=== PATIENT | female | born 1935 | race Caucasian/White ===

== ENCOUNTER 2016-04-25 18:43 | Inpatient (IN) ==
--- NOTE | 2016-04-25 19:04 | Emergency Department Note ---
Disposition Clinical Impression: HCAP (healthcare-associated pneumonia), Esotropia of left eye Leukocytosis Qualifiers: Leukocytosis type: unspecified Qualified Code(s): D72.829 - Elevated white blood cell count, unspecified Disposition: Admitted As Inpatient Condition: Fair Time of Disposition: 22:38 Neuro HPI - General Chief Complaint: ED Neuro Symptoms/Deficit Stated Complaint: Neuro Symptoms "Eyes Crossed" Time Seen by Provider: 04/25/16 18:47 Source: patient, EMS Mode of arrival: EMS Limitations: no limitations Nursing Notes Reviewed: Yes Vital Signs Reviewed: Yes - History of Present Illness HPI Narrative: Patient is a 40-year-old female with past medical history of mental retardation , 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 She presents today from a custodial due to concern for new onset left eye deviation inward , possible change in mental status. She also has a recent history of aspiration pneumonia and is currently on Levaquin. When talking to the patient , she is able to answer yes and no questions, is alert and oriented 3. Denies any chest pain, shortness of breath, cough, nausea, vomiting, abdominal pain. Patient did have a fever on presentation. Brother is present at bedside and states that she is near baseline except he agrees that the left eye deviation is new for the patient. - Related Data Home Medications: Home Medications Medication Instructions Recorded Confirmed Aspirin Enteric Coated [Aspirin EC] 81 mg PO DAILY 01/29/15 03/21/15 Divalproex (12 HR) [Depakote (12 250 mg PO TID 01/29/15 03/21/15 HR)] Donepezil [Aricept] 10 mg PO DAILY 01/29/15 03/21/15 Folic Acid 0.4 mg PO DAILY 01/29/15 03/21/15 GuaiFENesin Liq [Robitussin Liq] 10 ml PO Q4H PRN 01/29/15 03/21/15 Haloperidol [Haldol] 0.5 mg PO BID 01/29/15 03/21/15 Haloperidol [Haldol] 0.5 mg PO Q2H PRN 01/29/15 03/21/15 Hypromellose [Artificial Tears] 1 drop BOTH EYES BID 01/29/15 03/21/15 Magnesium Hydroxide [Milk of 30 ml PO DAILY PRN 01/29/15 03/21/15 Magnesia] Metoprolol XL (24 HR) Succ [Toprol 50 mg PO DAILY 01/29/15 03/21/15 Xl] Ondansetron HCl [Zofran] 4 mg PO TID PRN 01/29/15 03/21/15 Oxybutynin Chloride [Ditropan Xl] 5 mg PO DAILY 01/29/15 03/21/15 RisperiDONE [Risperdal] 0.5 mg PO QAM 01/29/15 03/21/15 RisperiDONE [Risperdal] 1 mg PO QPM 01/29/15 03/21/15 Nystatin Cream [Mycostatin Cream] 1 appl TP BID 03/21/15 03/21/15 Nystatin POWDER [Nystop] 30 gm TP BID 03/21/15 03/21/15 Previous Rx's Medication Instructions Recorded HYDROcodone/Acet 5/325 mg [Matthews 1 tab PO Q8H PRN #20 tablet 04/01/15 5-325 mg] Levofloxacin 750 MG/150 ML 750 mg IVPB DAILY 2 Days 09/22/15 [Levaquin 750mg/150 mL] Levofloxacin [Levaquin] 500 mg PO DAILY #5 tablet 09/22/15 Allergies/Adverse Reactions: Allergies Allergy/AdvReac Type Severity Reaction Status Date / Time lactose Allergy Vomiting Verified 01/29/15 15:07 peanut Allergy Abdominal Verified 01/29/15 15:07 Pain piperacillin [From Zosyn] Allergy Hives Verified 04/25/16 23:48 tazobactam [From Zosyn] Allergy Hives Verified 04/25/16 23:48 Constitutional: Reports: fever Cardiovascular: Denies: chest pain Respiratory: Denies: cough, dyspnea Gastrointestinal: Denies: abdominal pain, nausea, vomiting, diarrhea Genitourinary: Denies: urgency, dysuria Musculoskeletal: Denies: back pain Integumentary: Denies: rash Neurological: Denies: headache, weakness, numbness, paresthesias Past Medical History - Past Medical History Attestation: Yes The following information was validated with the patient. Medical history: Reports: CVA, dementia, GERD, hypertension, osteoporosis Surgical history: Reports: cholecystectomy, hysterectomy Psychiatric history: Reports: anxiety, depression DRILL RUNNER history: Reports: no DRILL RUNNER history - Social History Smoking Status: Never smoker Smokeless Tobacco Status: No Alcohol use: Reports: none Drug use: Reports: none Physical Exam - General Limitations: other (mental retardation ) General appearance: alert, in no apparent distress - Head Head exam: atraumatic, normocephalic, normal inspection - Eye Eye exam: Present: PERRL, EOMI, other (medial deviation of left eye) - ENT ENT exam: normal exam, normal oropharynx, mucous membranes moist - Neck Neck exam: Present: normal inspection, full ROM, trachea midline - Chest Chest inspection: Present: normal inspection, symmetric chest wall rise - Respiratory Respiratory exam: Present: normal lung sounds bilaterally. Absent: respiratory distress, wheezes, stridor - Cardiovascular Cardiovascular exam: Present: regular rate, normal rhythm, normal heart sounds - Abdominal Exam Abdominal exam: Present: soft, Non-Tender. Absent: tenderness, distention, guarding, rebound, rigidity - Extremities Exam Extremities exam: Present: other (Contractures of bilateral upper extremities, causing limited range of motion.). Absent: full ROM - Neurological Exam Neurological exam: Present: alert, oriented X3, other (Patient has chronic spasticity of bilateral upper extremity, bilateral lower extremities. It is unable to obtain a proper NIH score because of mental retardation and inability to perform required NIH tasks. Medial left eye deviation. ) - Psychiatric Psychiatric exam: Present: normal mood, flat affect - Skin Skin exam: Present: warm, dry, intact, normal color Course Course Narrative: Patient febrile. Otherwise, the rest of vitals were within normal limits. Patient has chronic spasticity of bilateral upper extremity, bilateral lower extremities. It is unable to obtain a proper NIH score because of mental retardation and inability to perform required NIH tasks. Medial left eye deviation. We will obtain head CT scan, basic labs, urinalysis, EKG and chest x-ray. 21:09 EKG showed no acute ST changes. Chest x-ray showed possible pneumonia. Basic labs show elevation in white blood cell count is 16.6, patient was also febrile at 100.8 on presentation. Troponin negative. Currently waiting on urinalysis. Due to leukocytosis, fever, possible pneumonia on x-ray, will draw blood cultures and then start empiric antibiotics for HCAP. Head CT negative for any acute abnormality, patient's eyes left eye medial deviation. Will likely need an MRI once admitted for further workup. 22:33 HCAP antibiotics started. FLuids started for tachycardia. Dr. Medina accepted for admission for new onset left eye deviation, HCAP. Vital Signs Temperature 0 F L 04/25/16 19:12 Pulse Rate 122 04/25/16 19:12 Respiratory Rate 18 04/25/16 19:12 Blood Pressure 122/52 04/25/16 19:12 O2 Sat by Pulse Oximetry 94 L 04/25/16 19:12 Temperature 99.8 F H 04/25/16 21:37 Pulse Rate 156 04/26/16 00:03 Respiratory Rate 30 04/26/16 00:03 Blood Pressure 132/59 04/26/16 00:03 O2 Sat by Pulse Oximetry 100 04/26/16 00:03 Oxygen Delivery Oxygen Delivery Nasal Cannula Neuro Symptoms/Deficit - MDM Narrative Medical decision making narrative: Patient febrile. Otherwise, the rest of vitals were within normal limits. Patient has chronic spasticity of bilateral upper extremity, bilateral lower extremities. It is unable to obtain a proper NIH score because of mental retardation and inability to perform required NIH tasks. Medial left eye deviation. We will obtain head CT scan, basic labs, urinalysis, EKG and chest x-ray. 21:09 EKG showed no acute ST changes. Chest x-ray showed possible pneumonia. Basic labs show elevation in white blood cell count is 16.6, patient was also febrile at 100.8 on presentation. Troponin negative. Currently waiting on urinalysis. Due to leukocytosis, fever, possible pneumonia on x-ray, will draw blood cultures and then start empiric antibiotics for HCAP. Head CT negative for any acute abnormality, patient's eyes left eye medial deviation. Will likely need an MRI once admitted for further workup. 22:33 HCAP antibiotics started. FLuids started for tachycardia. Dr. Medina accepted for admission for new onset left eye deviation, HCAP. - Medical Records Medical records reviewed: Yes I reviewed the patient's medical records. - Lab Data Lab results reviewed: Yes I reviewed the patient's lab results. Result diagrams: 04/25/16 20:16 04/25/16 20:16 Lab Results 04/25/16 04/25/16 04/25/16 Range/Units 19:58 20:16 20:16 WBC 16.6 H (4.3-11.1) K/mcL RBC 3.81 L (3.82-4.97) M/mcL Hgb 9.4 L (11.5-15.4) g/dL Hct 31.3 L (35.3-44.9) % MCV 82.2 L (83.0-100.0) fL MCH 24.7 L (28.0-33.3) pg MCHC 30.0 L (31.6-35.5) g/dL RDW 15.7 H (11.5-14.5) % Plt Count 442 H (140-400) K/mcL MPV 9.4 (9.4-12.4) fL Immature Gran % 0.5 (0-4) % Seg Neutrophils % 77.7 % Lymphocytes % 13.5 % Monocytes % 7.1 % Eosinophils % 0.9 % Basophils % 0.3 % Neutrophils # 12.9 H (1.6-8.9) K/mcL Lymphocytes # 2.2 (0.6-4.6) K/mcL Monocytes # 1.2 (0.0-1.3) K/mcL Eosinophils # 0.2 (0.0-0.6) K/mcL Basophils # 0.1 (0.0-0.2) K/mcL PT 15.0 H (9.4-12.1) Seconds INR 1.4 APTT 32.2 (26.0-36.0) Seconds Sodium (136-145) mEq/L Potassium (3.5-4.5) mEq/L Chloride (98-109) mEq/L Carbon Dioxide (19-29) mEq/L BUN (7-20) mg/dL Creatinine (0.57-1.11) mg/dL Est GFR ( Amer) (> 60) Est GFR (Non-Af Amer) (> 60) BUN/Creatinine Ratio (6-26) Glucose (70-99) mg/dL POC Glucose 88 (58-89) Calculated Osmolality (280-300) Lactic Acid (0.5-2.2) mmol/L Calcium (8.6-10.8) mg/dL Magnesium (1.6-2.6) mg/dL Troponin I (0-0.03) ng/mL Urine Color (Yellow) Urine Clarity (Clear) Urine pH (5.0-8.0) pH Units Ur Specific [place] (1.010-1.025) Urine Protein (Neg-Trace) mg/dL Urine Glucose (UA) (Normal) mg/dL Urine Ketones (Negative) mg/dL Urine Blood (Negative) Urine Nitrite (Negative) Urine Bilirubin (Negative) Urine Urobilinogen (Normal) mg/dL Ur Leukocyte Esterase (Negative) Urine Microscopic RBC (0-3) per hpf Urine Microscopic WBC (0-3) per hpf Ur Squamous Epith Cells (None-Few) per lpf Urine Bacteria (None-Few) per hpf Hyaline Casts (None-Few) per lpf Ur Culture Indicated? (NO) 04/25/16 04/25/16 04/25/16 Range/Units 20:16 20:16 20:16 WBC (4.3-11.1) K/mcL RBC (3.82-4.97) M/mcL Hgb (11.5-15.4) g/dL Hct (35.3-44.9) % MCV (83.0-100.0) fL MCH (28.0-33.3) pg MCHC (31.6-35.5) g/dL RDW (11.5-14.5) % Plt Count (140-400) K/mcL MPV (9.4-12.4) fL Immature Gran % (0-4) % Seg Neutrophils % % Lymphocytes % % Monocytes % % Eosinophils % % Basophils % % Neutrophils # (1.6-8.9) K/mcL Lymphocytes # (0.6-4.6) K/mcL Monocytes # (0.0-1.3) K/mcL Eosinophils # (0.0-0.6) K/mcL Basophils # (0.0-0.2) K/mcL PT (9.4-12.1) Seconds INR APTT (26.0-36.0) Seconds Sodium 139 (136-145) mEq/L Potassium 4.1 (3.5-4.5) mEq/L Chloride 102 (98-109) mEq/L Carbon Dioxide 28 (19-29) mEq/L BUN 32 H (7-20) mg/dL Creatinine 0.58 (0.57-1.11) mg/dL Est GFR ( Amer) > 60 (> 60) Est GFR (Non-Af Amer) > 60 (> 60) BUN/Creatinine Ratio 55 H (6-26) Glucose 88 (70-99) mg/dL POC Glucose (58-89) Calculated Osmolality 294 (280-300) Lactic Acid (0.5-2.2) mmol/L Calcium 8.4 L (8.6-10.8) mg/dL Magnesium 1.5 L (1.6-2.6) mg/dL Troponin I 0.02 (0-0.03) ng/mL Urine Color (Yellow) Urine Clarity (Clear) Urine pH (5.0-8.0) pH Units Ur Specific [place] (1.010-1.025) Urine Protein (Neg-Trace) mg/dL Urine Glucose (UA) (Normal) mg/dL Urine Ketones (Negative) mg/dL Urine Blood (Negative) Urine Nitrite (Negative) Urine Bilirubin (Negative) Urine Urobilinogen (Normal) mg/dL Ur Leukocyte Esterase (Negative) Urine Microscopic RBC (0-3) per hpf Urine Microscopic WBC (0-3) per hpf Ur Squamous Epith Cells (None-Few) per lpf Urine Bacteria (None-Few) per hpf Hyaline Casts (None-Few) per lpf Ur Culture Indicated? (NO) 04/25/16 04/25/16 Range/Units 20:57 22:29 WBC (4.3-11.1) K/mcL RBC (3.82-4.97) M/mcL Hgb (11.5-15.4) g/dL Hct (35.3-44.9) % MCV (83.0-100.0) fL MCH (28.0-33.3) pg MCHC (31.6-35.5) g/dL RDW (11.5-14.5) % Plt Count (140-400) K/mcL MPV (9.4-12.4) fL Immature Gran % (0-4) % Seg Neutrophils % % Lymphocytes % % Monocytes % % Eosinophils % % Basophils % % Neutrophils # (1.6-8.9) K/mcL Lymphocytes # (0.6-4.6) K/mcL Monocytes # (0.0-1.3) K/mcL Eosinophils # (0.0-0.6) K/mcL Basophils # (0.0-0.2) K/mcL PT (9.4-12.1) Seconds INR APTT (26.0-36.0) Seconds Sodium (136-145) mEq/L Potassium (3.5-4.5) mEq/L Chloride (98-109) mEq/L Carbon Dioxide (19-29) mEq/L BUN (7-20) mg/dL Creatinine (0.57-1.11) mg/dL Est GFR ( Amer) (> 60) Est GFR (Non-Af Amer) (> 60) BUN/Creatinine Ratio (6-26) Glucose (70-99) mg/dL POC Glucose (58-89) Calculated Osmolality (280-300) Lactic Acid 0.8 (0.5-2.2) mmol/L Calcium (8.6-10.8) mg/dL Magnesium (1.6-2.6) mg/dL Troponin I (0-0.03) ng/mL Urine Color Yellow (Yellow) Urine Clarity Cloudy A (Clear) Urine pH 7.5 (5.0-8.0) pH Units Ur Specific [place] 1.020 (1.010-1.025) Urine Protein Negative (Neg-Trace) mg/dL Urine Glucose (UA) Normal (Normal) mg/dL Urine Ketones Negative (Negative) mg/dL Urine Blood Negative (Negative) Urine Nitrite Negative (Negative) Urine Bilirubin Negative (Negative) Urine Urobilinogen Normal (Normal) mg/dL Ur Leukocyte Esterase Small H (Negative) Urine Microscopic RBC 30-50 H (0-3) per hpf Urine Microscopic WBC 15-30 H (0-3) per hpf Ur Squamous Epith Cells Moderate H (None-Few) per lpf Urine Bacteria Many H (None-Few) per hpf Hyaline Casts None Seen (None-Few) per lpf Ur Culture Indicated? YES A (NO) - Radiology Data Radiology results reviewed: Yes I reviewed the patient's radiology results. Chest X-Ray 04/25/16 19:00 IMPRESSION: 1. Right perihilar airspace opacity and prominence of the right hilum, potentially pneumonia or asymmetric edema. 2. Questionable bilateral suprahilar opacities, potentially edema or artifact related to positioning. 3. Pulmonary vascular congestion. D/ / Steven Arauz MD / Steven Arauz MD Interpreting Provider: Steven Arauz MD Head CT 04/25/16 19:00 IMPRESSION: Evaluation markedly limited by motion artifact. No gross abnormality. Stable diffuse ventriculomegaly and white matter changes. D/ / 04/25/2016 20:00:23 Terry Godfrey MD / nathalia Interpreting Provider: Terry Godfrey MD - EKG Data EKG attestation: Yes I reviewed and interpreted this EKG. EKG results narrative: 04/25/2016 18:44. Sinus tachycardia. Rate 107. LA interval 140. QTC 387. No acute ST elevation or depression. Normal axis. S.B.A.R. - S.B.A.R. Situation: Demographics, MOA Background: Presenting Complaint, Relevant PMH, Meds, & Allergies Assessment: Vital Signs, Course and respsone to treatment, Exam Concerns, Patient/Family Expectation, Pertinant Lab Results, Outstanding Labs Recommendation: Barrier(s) to disposition, Recommendation based on pending studies, treatments, or consults S.B.A.R. Repor Time: 22:38 Attestation Statement - Attestation Attestation: For this encounter, I have reviewed the resident, [employer], or PA documentation, treatment plan, and medical decision making; and I have had face to face time with this patient. History source: Patient is unable to provide information for this note. Info was gathered from the patient, hospital staff, the patient's chart. History limitations: Patient condition Medications: As per nurses note 80-year-old female brought in for neurologic deficit as well as fever. Patient has MRDD and is unable to provide history regarding her symptoms. Nursing staff noted the patient had a medial deviated gaze of the left eye which is new today compared to previous. Patient is unable to perform a neurologic exam due to her baseline mental condition. Brother states the patient is at her baseline with motor activity and cognitive ability. Patient had a fever of 100.8 on evaluation in custodial. Chest x-ray shows a possible infiltrate and patient will be treated as HCAP. CT of the head was negative for acute intracranial hemorrhage or large mass. Patient is not a TPA candidate due to the unknown time of onset and her baseline mental status. Patient will be admitted to the hospital for further evaluation of sepsis versus possible CVA.
[2016-04-25 20:23] LABS: Basophils # 0.1 K/mcL (0.0-0.2); Basophils % 0.3 %; Eosinophils # 0.2 K/mcL (0.0-0.6); Eosinophils % 0.9 %; Hematocrit 31.3 % (35.3-44.9); Hemoglobin 9.4 g/dL (11.5-15.4); Immature Granulocytes % 0.5 % (0-4); Lymphocytes # 2.2 K/mcL (0.6-4.6); Lymphocytes % 13.5 %; Mean Corpuscular Hemoglobin 24.7 pg (28.0-33.3); Mean Corpuscular Volume 82.2 fL (83.0-100.0); Mean Platelet Volume 9.4 fL (9.4-12.4); Monocytes # 1.2 K/mcL (0.0-1.3); Monocytes % 7.1 %; Neutrophils # 12.9 K/mcL (1.6-8.9); Platelet Count 442 K/mcL (140-400); Red Blood Count 3.81 M/mcL (3.82-4.97); Red Cell Distribution Width 15.7 % (11.5-14.5); Segmented Neutrophils % 77.7 %
[2016-04-25 20:30] LABS: INR 1.4
[2016-04-25 20:33] LABS: Activated Partial Thrombo Time 32.2 Seconds (26.0-36.0)
[2016-04-25 20:35] LABS: BUN/Creatinine Ratio 55 (6-26); Blood Urea Nitrogen 32 mg/dL (7-20); Calcium 8.4 mg/dL (8.6-10.8); Carbon Dioxide 28 mEq/L (19-29); Chloride 102 mEq/L (98-109); Glucose 88 mg/dL (70-99); Osmolality,Calculated 294 (280-300); Potassium 4.1 mEq/L (3.5-4.5); Sodium 139 mEq/L (136-145); eGFR For African Americans > 60 (> 60); eGFR For Non-African Americans > 60 (> 60)
[2016-04-25 21:11] LABS: Bilirubin,Urine Negative (Negative); Blood,Urine Negative (Negative); Clarity,Urine Cloudy (Clear); Color,Urine Yellow (Yellow); Glucose,Urine (UA) Normal (Normal); Ketones,Urine Negative (Negative); Leukocyte Esterase,Urine Small (Negative); Nitrite,Urine Negative (Negative); PH,Urine 7.5 pH Units (5.0-8.0); Protein,Urine Negative (Neg-Trace); Urobilinogen,Urine Normal (Normal)
[2016-04-25 21:12] LABS: Bacteria,Urine Many per hpf (None-Few); Hyaline Casts,Urine None Seen per lpf (None-Few); RBC,Urine 30-50 per hpf (0-3); Squamous Epithelial Cell,Urine Moderate per lpf (None-Few); WBC,Urine 15-30 per hpf (0-3)
[2016-04-25] MEDS ORDERED: 0.9 % Sodium Chloride 1,000 ML IVC ONE (21:57)
[2016-04-25] MEDS ORDERED: Piperacillin/Tazobactam 3.375 GM in D5% in Water (Mini-Bag+) 100 ML IVPB ONE (22:27)
[2016-04-25] MEDS ORDERED: Vancomycin 2,000 MG in D5% in Water 250 ML IVPB ONE (22:27)
[2016-04-25] MEDS ORDERED: Levofloxacin 750 MG/150 ML 750 MG/150 ML BAG IVPB ONE (22:27)
[2016-04-25] MEDS ORDERED: methylPREDNISolone 125 MG/2 ML VIAL ONE (23:31)
[2016-04-25] MEDS ORDERED: *HR* EPINEPHrine 1 MG/ML AMPUL ONE (23:33)
[2016-04-25] MEDS ORDERED: methylPREDNISolone 125 MG/2 ML VIAL IVP ONE (23:35)
[2016-04-25] MEDS ORDERED: *HR* EPINEPHrine 0.3 MG/0.3 ML (PEN) SQ ONE (23:38)
[2016-04-25] MEDS: 0.9 % Sodium Chloride 1,000 ML IVC SCH (23:45)
--- NOTE | 2016-04-25 23:46 | Emergency Department Note ---
Disposition Clinical Impression: HCAP (healthcare-associated pneumonia), Esotropia of left eye, Leukocytosis Disposition: Admitted As Inpatient Condition: Fair Allergic Reaction HPI - General Chief complaint: ED Neuro Symptoms/Deficit Stated complaint: Neuro Symptoms "Eyes Crossed" Time Seen by Provider: 04/25/16 18:47 Source: patient, EMS Mode of arrival: EMS Limitations: other (mental retardation ) - Related Data Home Medications Medication Instructions Recorded Confirmed Divalproex (12 HR) [Depakote (12 250 mg GTUBE TID 01/29/15 04/26/16 HR)] Donepezil [Aricept] 10 mg GTUBE DAILY 01/29/15 04/26/16 Folic Acid 0.4 mg GTUBE DAILY 01/29/15 04/26/16 GuaiFENesin Liq [Robitussin Liq] 10 ml GTUBE Q4H PRN 01/29/15 04/26/16 Hypromellose [Artificial Tears] 1 drop BOTH EYES BID 01/29/15 04/26/16 Magnesium Hydroxide [Milk of 30 ml GTUBE DAILY PRN 01/29/15 04/26/16 Magnesia] Acetaminophen [Tylenol] 650 mg GTUBE Q4H PRN 04/26/16 04/26/16 Aspirin 81 mg GTUBE DAILY 04/26/16 04/26/16 Furosemide [Lasix] 20 mg GTUBE DAILY 04/26/16 04/26/16 HYDROcodone/Acet 5/325 mg [[place] 1 tab GTUBE Q8H PRN 04/26/16 04/26/16 5-325 mg] Ipratropium/Albuterol Neb [Duoneb] 3 ml IH Q6HR PRN 04/26/16 04/26/16 LORazepam [Ativan] 0.5 mg GTUBE BID PRN 04/26/16 04/26/16 Levofloxacin [Levaquin] 500 mg PO DAILY 04/26/16 Metoprolol [Lopressor] 50 mg GTUBE BID 04/26/16 04/26/16 Fredrick/Poly/Celeste OINT [Triple 1 appl TP AD 04/26/16 04/26/16 Antibiotic Ointment] Omeprazole [PriLOSEC] 40 mg GTUBE DAILY 04/26/16 04/26/16 Ondansetron Oral Soln [Zofran Oral 4 mg GTUBE TID 04/26/16 04/26/16 Soln] Oxybutynin Chloride 5 mg GTUBE DAILY 04/26/16 04/26/16 Promethazine [Phenergan] 25 mg IM Q6H PRN 04/26/16 04/26/16 RisperiDONE [Risperdal] 0.5 mg GTUBE QAM 04/26/16 04/26/16 RisperiDONE [Risperdal] 1 mg GTUBE QPM 04/26/16 04/26/16 Allergies Allergy/AdvReac Type Severity Reaction Status Date / Time lactose Allergy Vomiting Verified 01/29/15 15:07 peanut Allergy Abdominal Verified 01/29/15 15:07 Pain piperacillin [From Zosyn] Allergy Anaphylaxis Verified 04/26/16 08:01 tazobactam [From Zosyn] Allergy Anaphylaxis Verified 04/26/16 08:01 Constitutional: Reports: fever Cardiovascular: Denies: chest pain Respiratory: Denies: cough, dyspnea Gastrointestinal: Denies: abdominal pain, nausea, vomiting, diarrhea Genitourinary: Denies: urgency, dysuria Musculoskeletal: Denies: back pain Integumentary: Denies: rash Neurological: Denies: headache, weakness, numbness, paresthesias Past Medical History - Past Medical History Medical history: Reports: CVA, dementia, GERD, hypertension, osteoporosis Surgical history: Reports: cholecystectomy, hysterectomy Psychiatric history: Reports: anxiety, depression [employer] history: Reports: no [employer] history - Social History Smoking Status: Never smoker Smokeless Tobacco Status: No Alcohol use: Reports: none Drug use: Reports: none Physical Exam - General Limitations: other (mental retardation ) General appearance: alert, in no apparent distress Course Vital Signs Temperature 0 F L 04/25/16 19:12 Pulse Rate 122 04/25/16 19:12 Respiratory Rate 18 04/25/16 19:12 Blood Pressure 122/52 04/25/16 19:12 O2 Sat by Pulse Oximetry 94 L 04/25/16 19:12 Temperature 98.0 F 04/27/16 18:37 Pulse Rate 85 04/27/16 18:37 Respiratory Rate 16 04/27/16 18:37 Blood Pressure 138/69 04/27/16 18:37 O2 Sat by Pulse Oximetry 96 04/27/16 18:37 Oxygen Delivery Oxygen Delivery Non Rebreather Mask Allergic Reaction - MDM Narrative Medical decision making narrative: Requested to evaluate the patient by nursing reported she was having an allergic reaction. Patient had just completed her dose of Zosyn. Upon presentation the patient has whole body urticaria. Her blood pressure is stable and she is satting well in the high 90s. Heart rate is in the 130s but reported that this is where she has been for most of her visit. She has no oropharyngeal edema. She has diminished breath sounds bilaterally but no wheezing or stridor. Patient does report that she feels like she had an upset stomach. Given this the patient received Benadryl, Solu-Medrol and epinephrine subcutaneous. We will continue to monitor closely given her anaphylactic reaction. - Lab Data Result diagrams: 04/27/16 05:22 04/27/16 05:22 Lab Results 04/25/16 04/25/16 04/25/16 Range/Units 19:58 20:16 20:16 WBC 16.6 H (4.3-11.1) K/mcL RBC 3.81 L (3.82-4.97) M/mcL Hgb 9.4 L (11.5-15.4) g/dL Hct 31.3 L (35.3-44.9) % MCV 82.2 L (83.0-100.0) fL MCH 24.7 L (28.0-33.3) pg MCHC 30.0 L (31.6-35.5) g/dL RDW 15.7 H (11.5-14.5) % Plt Count 442 H (140-400) K/mcL MPV 9.4 (9.4-12.4) fL Immature Gran % 0.5 (0-4) % Seg Neutrophils % 77.7 % Lymphocytes % 13.5 % Monocytes % 7.1 % Eosinophils % 0.9 % Basophils % 0.3 % Neutrophils # 12.9 H (1.6-8.9) K/mcL Lymphocytes # 2.2 (0.6-4.6) K/mcL Monocytes # 1.2 (0.0-1.3) K/mcL Eosinophils # 0.2 (0.0-0.6) K/mcL Basophils # 0.1 (0.0-0.2) K/mcL PT 15.0 H (9.4-12.1) Seconds INR 1.4 APTT 32.2 (26.0-36.0) Seconds Sodium (136-145) mEq/L Potassium (3.5-4.5) mEq/L Chloride (98-109) mEq/L Carbon Dioxide (19-29) mEq/L BUN (7-20) mg/dL Creatinine (0.57-1.11) mg/dL Est GFR ( Amer) (> 60) Est GFR (Non-Af Amer) (> 60) BUN/Creatinine Ratio (6-26) Glucose (70-99) mg/dL POC Glucose 88 (58-89) Calculated Osmolality (280-300) Lactic Acid (0.5-2.2) mmol/L Calcium (8.6-10.8) mg/dL Magnesium (1.6-2.6) mg/dL Troponin I (0-0.03) ng/mL Urine Color (Yellow) Urine Clarity (Clear) Urine pH (5.0-8.0) pH Units Ur Specific [place] (1.010-1.025) Urine Protein (Neg-Trace) mg/dL Urine Glucose (UA) (Normal) mg/dL Urine Ketones (Negative) mg/dL Urine Blood (Negative) Urine Nitrite (Negative) Urine Bilirubin (Negative) Urine Urobilinogen (Normal) mg/dL Ur Leukocyte Esterase (Negative) Urine Microscopic RBC (0-3) per hpf Urine Microscopic WBC (0-3) per hpf Ur Squamous Epith Cells (None-Few) per lpf Urine Bacteria (None-Few) per hpf Hyaline Casts (None-Few) per lpf Ur Culture Indicated? (NO) 04/25/16 04/25/16 04/25/16 Range/Units 20:16 20:16 20:16 WBC (4.3-11.1) K/mcL RBC (3.82-4.97) M/mcL Hgb (11.5-15.4) g/dL Hct (35.3-44.9) % MCV (83.0-100.0) fL MCH (28.0-33.3) pg MCHC (31.6-35.5) g/dL RDW (11.5-14.5) % Plt Count (140-400) K/mcL MPV (9.4-12.4) fL Immature Gran % (0-4) % Seg Neutrophils % % Lymphocytes % % Monocytes % % Eosinophils % % Basophils % % Neutrophils # (1.6-8.9) K/mcL Lymphocytes # (0.6-4.6) K/mcL Monocytes # (0.0-1.3) K/mcL Eosinophils # (0.0-0.6) K/mcL Basophils # (0.0-0.2) K/mcL PT (9.4-12.1) Seconds INR APTT (26.0-36.0) Seconds Sodium 139 (136-145) mEq/L Potassium 4.1 (3.5-4.5) mEq/L Chloride 102 (98-109) mEq/L Carbon Dioxide 28 (19-29) mEq/L BUN 32 H (7-20) mg/dL Creatinine 0.58 (0.57-1.11) mg/dL Est GFR ( Amer) > 60 (> 60) Est GFR (Non-Af Amer) > 60 (> 60) BUN/Creatinine Ratio 55 H (6-26) Glucose 88 (70-99) mg/dL POC Glucose (58-89) Calculated Osmolality 294 (280-300) Lactic Acid (0.5-2.2) mmol/L Calcium 8.4 L (8.6-10.8) mg/dL Magnesium 1.5 L (1.6-2.6) mg/dL Troponin I 0.02 (0-0.03) ng/mL Urine Color (Yellow) Urine Clarity (Clear) Urine pH (5.0-8.0) pH Units Ur Specific [place] (1.010-1.025) Urine Protein (Neg-Trace) mg/dL Urine Glucose (UA) (Normal) mg/dL Urine Ketones (Negative) mg/dL Urine Blood (Negative) Urine Nitrite (Negative) Urine Bilirubin (Negative) Urine Urobilinogen (Normal) mg/dL Ur Leukocyte Esterase (Negative) Urine Microscopic RBC (0-3) per hpf Urine Microscopic WBC (0-3) per hpf Ur Squamous Epith Cells (None-Few) per lpf Urine Bacteria (None-Few) per hpf Hyaline Casts (None-Few) per lpf Ur Culture Indicated? (NO) 04/25/16 04/25/16 04/26/16 Range/Units 20:57 22:29 00:45 WBC (4.3-11.1) K/mcL RBC (3.82-4.97) M/mcL Hgb (11.5-15.4) g/dL Hct (35.3-44.9) % MCV (83.0-100.0) fL MCH (28.0-33.3) pg MCHC (31.6-35.5) g/dL RDW (11.5-14.5) % Plt Count (140-400) K/mcL MPV (9.4-12.4) fL Immature Gran % (0-4) % Seg Neutrophils % % Lymphocytes % % Monocytes % % Eosinophils % % Basophils % % Neutrophils # (1.6-8.9) K/mcL Lymphocytes # (0.6-4.6) K/mcL Monocytes # (0.0-1.3) K/mcL Eosinophils # (0.0-0.6) K/mcL Basophils # (0.0-0.2) K/mcL PT (9.4-12.1) Seconds INR APTT (26.0-36.0) Seconds Sodium (136-145) mEq/L Potassium (3.5-4.5) mEq/L Chloride (98-109) mEq/L Carbon Dioxide (19-29) mEq/L BUN (7-20) mg/dL Creatinine (0.57-1.11) mg/dL Est GFR ( Amer) (> 60) Est GFR (Non-Af Amer) (> 60) BUN/Creatinine Ratio (6-26) Glucose (70-99) mg/dL POC Glucose (58-89) Calculated Osmolality (280-300) Lactic Acid 0.8 2.0 (0.5-2.2) mmol/L Calcium (8.6-10.8) mg/dL Magnesium (1.6-2.6) mg/dL Troponin I (0-0.03) ng/mL Urine Color Yellow (Yellow) Urine Clarity Cloudy A (Clear) Urine pH 7.5 (5.0-8.0) pH Units Ur Specific [place] 1.020 (1.010-1.025) Urine Protein Negative (Neg-Trace) mg/dL Urine Glucose (UA) Normal (Normal) mg/dL Urine Ketones Negative (Negative) mg/dL Urine Blood Negative (Negative) Urine Nitrite Negative (Negative) Urine Bilirubin Negative (Negative) Urine Urobilinogen Normal (Normal) mg/dL Ur Leukocyte Esterase Small H (Negative) Urine Microscopic RBC 30-50 H (0-3) per hpf Urine Microscopic WBC 15-30 H (0-3) per hpf Ur Squamous Epith Cells Moderate H (None-Few) per lpf Urine Bacteria Many H (None-Few) per hpf Hyaline Casts None Seen (None-Few) per lpf Ur Culture Indicated? YES A (NO) 04/26/16 Range/Units 01:56 WBC (4.3-11.1) K/mcL RBC (3.82-4.97) M/mcL Hgb (11.5-15.4) g/dL Hct (35.3-44.9) % MCV (83.0-100.0) fL MCH (28.0-33.3) pg MCHC (31.6-35.5) g/dL RDW (11.5-14.5) % Plt Count (140-400) K/mcL MPV (9.4-12.4) fL Immature Gran % (0-4) % Seg Neutrophils % % Lymphocytes % % Monocytes % % Eosinophils % % Basophils % % Neutrophils # (1.6-8.9) K/mcL Lymphocytes # (0.6-4.6) K/mcL Monocytes # (0.0-1.3) K/mcL Eosinophils # (0.0-0.6) K/mcL Basophils # (0.0-0.2) K/mcL PT (9.4-12.1) Seconds INR APTT (26.0-36.0) Seconds Sodium (136-145) mEq/L Potassium (3.5-4.5) mEq/L Chloride (98-109) mEq/L Carbon Dioxide (19-29) mEq/L BUN (7-20) mg/dL Creatinine (0.57-1.11) mg/dL Est GFR ( Amer) (> 60) Est GFR (Non-Af Amer) (> 60) BUN/Creatinine Ratio (6-26) Glucose (70-99) mg/dL POC Glucose 169 H (58-89) Calculated Osmolality (280-300) Lactic Acid (0.5-2.2) mmol/L Calcium (8.6-10.8) mg/dL Magnesium (1.6-2.6) mg/dL Troponin I (0-0.03) ng/mL Urine Color (Yellow) Urine Clarity (Clear) Urine pH (5.0-8.0) pH Units Ur Specific [place] (1.010-1.025) Urine Protein (Neg-Trace) mg/dL Urine Glucose (UA) (Normal) mg/dL Urine Ketones (Negative) mg/dL Urine Blood (Negative) Urine Nitrite (Negative) Urine Bilirubin (Negative) Urine Urobilinogen (Normal) mg/dL Ur Leukocyte Esterase (Negative) Urine Microscopic RBC (0-3) per hpf Urine Microscopic WBC (0-3) per hpf Ur Squamous Epith Cells (None-Few) per lpf Urine Bacteria (None-Few) per hpf Hyaline Casts (None-Few) per lpf Ur Culture Indicated? (NO) Attestation Statement - Attestation Attestation: I, Ben Wiley MD, personally performed a history and physical exam of the patient and discussed their management with the resident. I reviewed the resident's note and agree with the documented findings, medical decision making , and plan of care. This patient was signed out at shift change from Dr. Greenberg. Patient has been accepted for admission and awaiting bed placement. Patient received IV Zosyn and developed an anaphylactic reaction here in the emergency department. Patient with diffuse hives and shortness of breath. She was treated with IV Benadryl and Solu-Medrol. She also received epinephrine 1:1000, 0.3 mL subcutaneous. She did have improvement in her symptoms with this treatment and will be transferred to the floor after some further observation here in the emergency department.
--- NOTE | 2016-04-26 00:24 | Internal Med History&Physical ---
<Che Galan - Last Filed: 04/26/16 01:51> Date of Encounter: 04/25/16 Time of Encounter: 00:22 Assessment and Plan (1) Anaphylactic reaction Current visit: Yes Status: Acute In ER pt during administration of Zosyn for HCAP pt developed facial and neck edema, abdominal and extremities x4 hives given epinephrine, IV steriods, pepcid and Benadryl will place in ICU for next couple hours for close monitoring continue steroids, benadryl, pepcid (2) HCAP (healthcare-associated pneumonia) Current visit: Yes Status: Acute lives in ECF, recently had an aspiration pneumonia CXR with hilar opacity, WBC 16.6 treat with levaquin monotherapy sputum ctx supportive care (3) Leukocytosis Current visit: Yes Status: Acute WBC 16.6 started on levaquin for suspected pneumonia Qualifiers: Leukocytosis type: unspecified Qualified Code(s): D72.829 - Elevated white blood cell count, unspecified (4) Sepsis Current visit: No Status: Acute leukocytosis, RR>22, tachycardic suspected pneumonia vs UTI started on levaquin Qualifiers: Sepsis type: sepsis due to unspecified organism Qualified Code(s): A41.9 - Sepsis, unspecified organism (5) Esotropia of left eye Current visit: Yes Status: Acute unclear etiology, has improved CT scan with diffuse ventriculomegaly and white matter changes no acute changes appreciated may need MRI for further imaging if remains unresolved (6) Dementia Current visit: No Status: Acute Qualifiers: Dementia type: Alzheimer's disease Alzheimer's disease onset: unspecified onset (7) Debility Current visit: No Status: Acute (8) DVT prophylaxis Current visit: No Status: Acute SCDs SQ heparin (9) Hypomagnesemia Current visit: Yes Status: Acute Mg 1.5 will replace (10) Dehydration Current visit: Yes Status: Acute IVF supportive care Internal Medicine - H&P: HPI Chief complaint: new onset L eye deviation Admitted From: Emergency Dept Plans for Post Hospital Care: Transfer Shelter Facility History of present illness: Ms. Moreland is a 80 year old female with new onset L eye deviation. PMHx of MRDD , spastic paralysis, dementia, CVA, HTN, shizophrenia, anxiety/depression who was currently receiving abx treatment with levaquin for a current pneumonia infection. [facility] sent pt to ER for change in baseline mental status, and left eye medial deviation. Pt is poor historian, but is able to answer most yes/no questions. Pt states that she did feel more confused earlier today, but is unable to remember when or how long this lasted for. Brother at bed side earlier, states that she is back to her baseline mentation, but eye deviation is knew today. pt states she did have some nausea earlier today. Pt denies recent fall/trauma, denies headache, change in vision, CP, SOB, vomiting. Past Med Surg Social Fam HX - Past Medical History Medical history: CHF, CVA, dementia, GERD, hypertension, osteoporosis Psychiatric history: anxiety, depression, schizophrenia - Past Surgical History Surgical History: carotid endarterectomy, cholecystectomy, hysterectomy - Social History Smoking Status: Never smoker Smokeless Tobacco Status: No Alcohol use: none Drug use: none Internal Medicine - H&P: Meds Aspirin Enteric Coated [Aspirin EC] 81 mg PO DAILY 01/29/15 [History] Divalproex (12 HR) [Depakote (12 HR)] 250 mg PO TID 01/29/15 [History] Donepezil [Aricept] 10 mg PO DAILY 01/29/15 [History] Folic Acid 0.4 mg PO DAILY 01/29/15 [History] GuaiFENesin Liq [Robitussin Liq] 10 ml PO Q4H PRN 01/29/15 [History] Haloperidol [Haldol] 0.5 mg PO BID 01/29/15 [History] Haloperidol [Haldol] 0.5 mg PO Q2H PRN 01/29/15 [History] Hypromellose [Artificial Tears] 1 drop BOTH EYES BID 01/29/15 [History] Magnesium Hydroxide [Milk of Magnesia] 30 ml PO DAILY PRN 01/29/15 [History] Metoprolol XL (24 HR) Succ [Toprol Xl] 50 mg PO DAILY 01/29/15 [History] Ondansetron HCl [Zofran] 4 mg PO TID PRN 01/29/15 [History] Oxybutynin Chloride [Ditropan Xl] 5 mg PO DAILY 01/29/15 [History] RisperiDONE [Risperdal] 0.5 mg PO QAM 01/29/15 [History] RisperiDONE [Risperdal] 1 mg PO QPM 01/29/15 [History] Nystatin Cream [Mycostatin Cream] 1 appl TP BID 03/21/15 [History] Nystatin POWDER [Nystop] 30 gm TP BID 03/21/15 [History] HYDROcodone/Acet 5/325 mg [[place] 5-325 mg] 1 tab PO Q8H PRN #20 tablet 04/01/15 [Rx] Levofloxacin 750 MG/150 ML [Levaquin 750mg/150 mL] 750 mg IVPB DAILY 2 Days [Rx] Levofloxacin [Levaquin] 500 mg PO DAILY #5 tablet 09/22/15 [Rx] Allergies lactose Allergy (Verified 01/29/15 15:07) Vomiting peanut Allergy (Verified 01/29/15 15:07) Abdominal Pain unknown piperacillin [From Zosyn] Allergy (Verified 04/25/16 23:48) Hives tazobactam [From Zosyn] Allergy (Verified 04/25/16 23:48) Hives All Systems PM: A 10-system review of systems was performed and is negative for pertinent findings except as documented above in the HPI. - Constitutional Constitutional: no chills, no fever(s), no night sweats - EENT Eyes: other visual disturbances, no change in vision (deviation of L eye), no discharge, no pain, no photophobia Nose, mouth and throat: no dysphagia, no nasal discharge, no neck pain, no sore throat - Cardiovascular Cardiovascular ROS IM: no chest pain, no diaphoresis, no dyspnea, no lightheadedness, no palpitations, no syncope - Respiratory Respiratory: cough, no dyspnea, no hemoptysis, no wheezing, no pain on inspiration - Gastrointestinal Gastrointestinal: nausea, no hematemesis, no vomiting - Genitourinary Genitourinary: no change in urinary stream, no dysuria, no flank pain, no hematuria - Musculoskeletal Musculoskeletal ROS IM: no numbness, no tingling - Neurological Neurological ROS: confusion, no convulsions, no focal weakness, no numbness, no tingling, no tremor(s) - Psychiatric Psychiatric: anxiety - Constitutional Vitals: Temp Pulse Resp BP Pulse Ox 99.8 F H 156 30 132/59 100 04/25/16 21:37 04/26/16 00:03 04/26/16 00:03 04/26/16 00:03 04/26/16 00:03 General appearance: Present: mild distress, A&O X 3 - Head Head exam: Present: atraumatic, normocephalic - Eye Eye exam: Present: EOMI (slight medial deviation of L eye,able to move engage LR and move it laterally), conjuntiva pink, sclera anicteric - ENT ENT exam: Present: mucous membranes dry Additional comments: edentulous no apparent oral edema at this time - Neck Neck exam general surgery: Absent: lymphadenopathy, tenderness - Respiratory Respiratory exam: Present: accessory muscle use, decreased breath sounds (b/l), rales (b/l bases R>L), respiratory distress (mild), tachypnea. Absent: chest wall tenderness, wheezes - Expanded Respiratory Exam Location: decreased breath sounds: Left, Right, rales: Lower, Right, Left (b/l bases) - Cardiovascular Cardiovascular exam: Present: RRR, +S1, +S2. Absent: diastolic murmur, gallop, rubs, systolic murmur - GI/Abdominal GI/Abdominal exam: Present: normal bowel sounds, soft. Absent: rebound, rigid, no peritoneal signs Additional comments: G tube in place with some residual - Extremities Exam Extremities exam: Present: pedal edema (trace). Absent: calf tenderness, tenderness Additional comments: contracture and muscle atrophy and wasting of all four extremities - Neurological Exam Neurological exam: Present: alert, CN II-XII intact. Absent: facial droop, speech deficit - Psychiatric Psychiatric exam: Present: anxious - Skin Skin exam: Present: urticaria (on neck, abdomen and b/l LE improving) Internal Med - H&P Results - Labs CBC & Chem 7: 04/25/16 20:16 04/25/16 20:16 <Jose J Puente - Last Filed: 04/26/16 03:08> Past Med Surg Social Fam HX - Family History Mother History Unknown: Yes Father History Unknown: Yes - Constitutional Vitals: Temp Pulse Resp BP Pulse Ox 100.0 F H 124 30 148/83 100 04/26/16 02:00 04/26/16 02:00 04/26/16 02:00 04/26/16 02:00 04/26/16 02:00 General appearance: Present: cooperative, pleasant - Head Head exam: Present: atraumatic - Eye Eye exam: Present: EOMI (no deviation now on my exma; EOMI), PERRL. Absent: scleral icterus - ENT ENT exam: Present: mucous membranes dry Additional comments: minimal tongue and lip swelling when I saw her in ER w resident; I reassessed her in ICU and no swelling whatsoever -- resolved; no stridor - Neck Neck exam general surgery: Present: full ROM, supple - Respiratory Respiratory exam: Present: decreased breath sounds, rales, tachypnea - Cardiovascular Cardiovascular exam: Present: RRR, +S1, +S2, tachycardia - GI/Abdominal GI/Abdominal exam: Present: normal bowel sounds, soft. Absent: hepatomegaly, splenomegaly, tenderness - Extremities Exam Extremities exam: Present: warm, radial pulses palpable and symetrical. Absent : calf tenderness, joint swelling - Skin Skin exam: Present: dry, urticaria (minimal now), warm Internal Med - H&P Results - Labs CBC & Chem 7: 04/25/16 20:16 04/25/16 20:16 - Diagnostic Studies Chest x-ray Status: image reviewed by me (right sided middle lobe/infrahilar infiltrate) - Attending Attestation I discussed the patient [facility] [place], PMH, ROS, lab data, exam findings, and ER anaphylaxis episode with Dr. Galan. I then saw and examined patient in ER independently as well and then later again in ICU. In ER, patient did have some minor lip and tongue swelling but no stridor. Given her anaphylactic reaction to Zosyn, I placed her in ICU for close monitoring. I reassessed her again in ICU about an hour later, and her swelling has resolved and urticaria is almost completely gone. I will transfer her out of ICU in four hours if she remains stable and has no rebound angioedema. I agree with the steroids, Benadryl, and Pepcid for treatment of her anaphylaxis. Additionally, after I discussed the case again with Dr. Galan, I requested patient be placed on Flagyl as well as Levaquin for probable aspiration pneumonia. Pt has a PEG tube and is npo due to aspiration risk. Other than my comments and exam findings noted above, I agree with Dr. Galan's assessment and plan.
[2016-04-26] MEDS ORDERED: Famotidine 20 MG/2 ML VIAL IVP ONE (01:00)
[2016-04-26] MEDS: 0.9 % Sodium Chloride 1,000 ML IVC SCH ×2 (02:00→10:20)
[2016-04-26] MEDS ORDERED: Naloxone 0.4 MG/ML INJ IVP PRN ×2 (02:04→08:58)
[2016-04-26] MEDS ORDERED: 0.9 % Sodium Chloride 1,000 ML IVC SCH ×2 (02:30→08:58)
[2016-04-26] MEDS ORDERED: Calcium Gluconate 1,000 MG in D5% in Water 100 ML IVPB PRN (02:30)
[2016-04-26] MEDS ORDERED: Magnesium Sulfate 2 GM in D5% in Water 100 ML IVPB PRN (02:30)
[2016-04-26 03:19] LABS: INR 1.4
[2016-04-26 03:22] LABS: Ionized Calcium 1.01 mmol/L (1.15-1.35)
[2016-04-26 03:26] LABS: Magnesium 1.5 mg/dL (1.6-2.6)
[2016-04-26 03:30] LABS: BUN/Creatinine Ratio 42 (6-26); Blood Urea Nitrogen 25 mg/dL (7-20); Calcium 8.1 mg/dL (8.6-10.8); Carbon Dioxide 24 mEq/L (19-29); Chloride 105 mEq/L (98-109); Glucose 144 mg/dL (70-99); Osmolality,Calculated 295 (280-300); Potassium 4.1 mEq/L (3.5-4.5); Sodium 139 mEq/L (136-145); eGFR For African Americans > 60 (> 60); eGFR For Non-African Americans > 60 (> 60)
[2016-04-26 05:07] LABS: Basophils % 0.1 %; Hematocrit 31.8 % (35.3-44.9); Hemoglobin 9.7 g/dL (11.5-15.4); Immature Granulocytes % 0.7 % (0-4); Lymphocytes # 0.4 K/mcL (0.6-4.6); Lymphocytes % 2.3 %; Mean Corpuscular HGB Conc 30.5 g/dL (31.6-35.5); Mean Corpuscular Hemoglobin 25.5 pg (28.0-33.3); Mean Corpuscular Volume 83.5 fL (83.0-100.0); Monocytes # 0.1 K/mcL (0.0-1.3); Monocytes % 0.4 %; Neutrophils # 15.2 K/mcL (1.6-8.9); Platelet Count 437 K/mcL (140-400); Red Blood Count 3.81 M/mcL (3.82-4.97); Red Cell Distribution Width 15.6 % (11.5-14.5); Segmented Neutrophils % 96.5 %
[2016-04-26] MEDS ORDERED: *HR* Heparin 5,000 UNIT/ML VIAL SQ SCH (06:00)
[2016-04-26] MEDS ORDERED: methylPREDNISolone 125 MG/2 ML VIAL IVP SCH (06:00)
[2016-04-26 07:43] LABS: Thyroid Stimulating Hormone 0.991 mcIU/mL (0.350-4.840)
[2016-04-26] MEDS ORDERED: Famotidine 20 MG/2 ML VIAL IVP SCH ×2 (08:00→16:00)
[2016-04-26] MEDS ORDERED: MetroNIDAZOLE 500 MG/100 ML 500 MG/100 ML BAG IVPB SCH (08:00)
[2016-04-26] MEDS ORDERED: Vancomycin 1,000 MG in D5% in Water 250 ML IVPB SCH ×2 (09:00)
[2016-04-26] MEDS ORDERED: Levofloxacin 750 MG/150 ML 750 MG/150 ML BAG IVPB SCH (09:00)
--- NOTE | 2016-04-26 10:50 | Internal Med Progress Note ---
<Ana Galo - Last Filed: 04/26/16 15:13> Date of Encounter: 04/26/16 Time of Encounter: 09:45 - Assessment and plan (1) Sepsis Current Visit: No Status: Acute Assessment and plan: - 3 SIRS criteria (tachycardia, tachypnea and leukocytosis) on admission. - Likely secondary to possible pneumonia as suggested by CXR. May also has UTI per UA. - Blood cultures and urine culture pending. - Will attempt to obtain sputum culture if possible. - Continue levofloxacin and metronidazole. - Also start vancomycin for S. aureus coverage. - IV fluid. - Closely monitor. Qualifiers: Sepsis type: sepsis due to unspecified organism Qualified Code(s): A41.9 - Sepsis, unspecified organism (2) Anaphylactic reaction Current Visit: Yes Status: Acute Assessment and plan: - Anaphylactic reaction to Zosyn. - Significantly improved after epinephrine, IV steroid, Pepcid and Benadryl. - Okay to discontinue pepcid and Benadryl. - Plan to switch IV steroid to PO tomorrow. - Continue to monitor. Qualifiers: Encounter type: initial encounter Qualified Code(s): T78.2XXA - Anaphylactic shock, unspecified, initial encounter (3) HCAP (healthcare-associated pneumonia) Current Visit: Yes Status: Acute Assessment and plan: - Healthcare-associated pneumonia given patient is from SNF. - Aspiration pneumonia is also possible given patient is on PEG tube. - Will attempt to obtain sputum culture if possible. - Continue levofloxacin and metronidazole. - Also start vancomycin for S. aureus coverage. - Supplemental oxygen. (4) Esotropia of left eye Current Visit: Yes Status: Resolved Assessment and plan: - Deviation of left eye to the medial side was noted on admission. - Resolved on the encounter this morning. - CT head poor quality but no gross abnormality noted. - Continue to monitor. (5) Hypomagnesemia Current Visit: Yes Status: Acute Assessment and plan: - Mg 1.5. - Mg supplement and continue to monitor. (6) DVT prophylaxis Current Visit: No Status: Acute Assessment and plan: - SCDs & SQ heparin. - Subjective Interval history: This note is just an update since admission after midnight and NOT for billing purpose. 80 yo female was sent from [facility] for altered mental status. Patient was noted to have left eye deviated to the medial side. CT head negative. CXR suggests possible right perihilar pneumonia. Patient was started on Zosyn and unfortunately developed anaphylactic reaction. Epinephrine, IV steroids, Pepcid & Benadryl were given. And patient was admitted to ICU for close monitoring. Patient's angioedema and shortness of breath resolved and she was transferred to this morning. Patient was seen and examined this morning. Patient is able to answer yes or no but cannot not provide detail. Patient has some cough but states she cannot cough up much sputum. Patient denies chest pain, shortness of breath, fever, chills, nausea, vomiting, diarrhea. - Constitutional Vitals: Temp Pulse Resp BP Pulse Ox 98.0 F 93 18 142/77 95 04/26/16 08:50 04/26/16 08:50 04/26/16 08:50 04/26/16 08:50 04/26/16 08:50 General appearance: Present: cooperative, A&O X 3, pleasant, no acute distress - Head Head exam: Present: atraumatic, normocephalic - Eye Eye exam: Present: PERRL, conjuntiva pink, sclera anicteric Additional comments: EOMI normal. No significant eye deviation noted. - Neck Neck exam general surgery: Present: supple, trachea midline. Absent: lymphadenopathy - Respiratory Respiratory exam: Present: decreased breath sounds, rales (Bibasiliar, R > L. ) . Absent: accessory muscle use, rhonchi, wheezes - Cardiovascular Cardiovascular exam: Present: +S1, +S2, tachycardia. Absent: diastolic murmur, gallop, rubs, systolic murmur - GI/Abdominal GI/Abdominal exam: Present: normal bowel sounds, soft, no peritoneal signs. Absent: distended, tenderness - Extremities Exam Extremities exam: Present: pedal edema, warm, radial pulses palpable and symetrical. Absent: calf tenderness, cyanotic Additional comments: contracture with muscle atrophy and wasting of all four extremities - Neurological Exam Neurological exam: Present: CN II-XII intact, oriented X3. Absent: pronater drift, facial droop, speech deficit - Skin Skin exam: Present: dry, intact Internal Medicine: Result - Labs CBC & Chem 7: 04/26/16 04:22 04/26/16 03:01 Labs: Short CBC 04/26/16 Range/Units 04:22 WBC 15.7 H (4.3-11.1) K/mcL Hgb 9.7 L (11.5-15.4) g/dL Hct 31.8 L (35.3-44.9) % Plt Count 437 H (140-400) K/mcL Neutrophils # 15.2 H (1.6-8.9) K/mcL BMP 04/26/16 03:01 Sodium 139 Potassium 4.1 Chloride 105 Carbon Dioxide 24 BUN 25 H Creatinine 0.59 Glucose 144 H Calcium 8.1 L - ABG Interpretation ABG results: PT/INR, D-dimer PT 15.0 Seconds (9.4-12.1) H 04/26/16 03:01 Consult Discharge Plan - Plan Referrals: NO,PCP [Primary Care Provider] - <Bart Can T - Last Filed: 04/26/16 17:21> - Constitutional Vitals: Temp Pulse Resp BP Pulse Ox 97.4 F L 92 17 135/95 95 04/26/16 15:00 04/26/16 15:00 04/26/16 15:00 04/26/16 15:00 04/26/16 15:00 Internal Medicine: Result - Labs CBC & Chem 7: 04/26/16 04:22 04/26/16 03:01 Labs: Short CBC 04/26/16 Range/Units 04:22 WBC 15.7 H (4.3-11.1) K/mcL Hgb 9.7 L (11.5-15.4) g/dL Hct 31.8 L (35.3-44.9) % Plt Count 437 H (140-400) K/mcL Neutrophils # 15.2 H (1.6-8.9) K/mcL [facility] 04/26/16 03:01 Sodium 139 Potassium 4.1 Chloride 105 Carbon Dioxide 24 BUN 25 H Creatinine 0.59 Glucose 144 H Calcium 8.1 L - ABG Interpretation ABG results: PT/INR, D-dimer PT 15.0 Seconds (9.4-12.1) H 04/26/16 03:01 - Attending Attestation I examined this patient and my medical decision-making was reviewed with the LIP CUTTER/PA/Advanced Practice Nurse/Resident Physician. I agree with the documented findings, disposition and treatment plan as described except to the extent set forth below. Seen and examined at bedside 80 Y/O F with MRDD, Dementia, Spastic paralysis, CVA, HTN, Schizophrenia, Anxiety/depression She is admitted and being managed for sepsis secondary to HCAP from [facility]. patient had anaphylaxis reaction to Zosyn in the ER At time of review at bedside she is stable and complained of chills Labs and Imaging reviewed, leukocytosis with left shift, Chem at baseline, UA dirty, Head CT with motion artifacts, no acute proceses, CXR with RLL pneumonia Plan is to cover for HCAP and possible aspiration pneumonia, follow cultures, obtain sputum if possible Pharmacy to dose Vancomycin Rest of details as in resident's documentation
[2016-04-26] MEDS: methylPREDNISolone 125 MG/2 ML VIAL IVP SCH ×2 (12:30→18:20)
--- NOTE | 2016-04-26 16:26 | Electrocardiograph Report ---
[address] [place] [address] Test Date: 2016-04-25 Pat Name: Malika Moreland Department: 104 Room: 3B31 Gender: F Tax Agent: : [id number] Requested By: Bart Can Order Number: [id number] Reading MD: Mervin Helton MD Measurements Intervals Nelson Rate: 107 P: 72 NC: 140 QRS: 46 QRSD: 85 T: 63 QT: 324 QTc: 387 Interpretive Statements SINUS TACHYCARDIA WITH OCCASIONAL SUPRAVENTRICULAR PREMATURE COMPLEXES MODERATE ST DEPRESSION BASELINE ARTIFACT Electronically Signed On 04-26-2016 16:24:45 EDT by Mervin Helton MD
[2016-04-26] MEDS: MetroNIDAZOLE 500 MG/100 ML 500 MG/100 ML BAG IVPB SCH (16:39)
[2016-04-26] MEDS ORDERED: MOM Conc 10 ML UD.LIQ GTUBE PRN (17:03)
[2016-04-26] MEDS ORDERED: Ipratropium/Albuterol Neb 3 ML IH PRN (17:03)
[2016-04-26] MEDS: risperiDONE 1 MG TABLET PO SCH (18:19)
[2016-04-26] MEDS: Vancomycin 1,000 MG in D5% in Water 250 ML IVPB SCH (18:19)
[2016-04-26] MEDS: *HR* Heparin 5,000 UNIT/ML VIAL SQ SCH (18:20)
[2016-04-26] MEDS ORDERED: Divalproex (12 HR) 250 MG TABLET PO SCH (21:00)
[2016-04-26] MEDS: Divalproex Sodium 125 MG CAPSULE GTUBE SCH (22:42)
[2016-04-27] MEDS: methylPREDNISolone 125 MG/2 ML VIAL IVP SCH ×4 (00:34→16:38)
[2016-04-27] MEDS: MetroNIDAZOLE 500 MG/100 ML 500 MG/100 ML BAG IVPB SCH ×3 (00:35→16:38)
[2016-04-27] MEDS: 0.9 % Sodium Chloride 1,000 ML IVC SCH ×3 (00:36→16:38)
[2016-04-27] MEDS: Vancomycin 1,000 MG in D5% in Water 250 ML IVPB SCH (04:09)
[2016-04-27] MEDS: *HR* Heparin 5,000 UNIT/ML VIAL SQ SCH ×2 (06:18→16:39)
[2016-04-27 06:44] LABS: Basophils % 0.1 %; Hematocrit 29.6 % (35.3-44.9); Immature Granulocytes % 0.8 % (0-4); Lymphocytes # 0.8 K/mcL (0.6-4.6); Lymphocytes % 9.5 %; Mean Corpuscular HGB Conc 30.4 g/dL (31.6-35.5); Mean Corpuscular Hemoglobin 25.3 pg (28.0-33.3); Mean Corpuscular Volume 83.1 fL (83.0-100.0); Mean Platelet Volume 10.6 fL (9.4-12.4); Monocytes # 0.2 K/mcL (0.0-1.3); Monocytes % 1.9 %; Neutrophils # 7.7 K/mcL (1.6-8.9); Platelet Count 400 K/mcL (140-400); Red Blood Count 3.56 M/mcL (3.82-4.97); Red Cell Distribution Width 15.3 % (11.5-14.5); Segmented Neutrophils % 87.7 %
[2016-04-27 06:53] LABS: BUN/Creatinine Ratio 43 (6-26); Blood Urea Nitrogen 23 mg/dL (7-20); Calcium 7.9 mg/dL (8.6-10.8); Carbon Dioxide 20 mEq/L (19-29); Chloride 107 mEq/L (98-109); Glucose 215 mg/dL (70-99); Osmolality,Calculated 294 (280-300); Potassium 3.6 mEq/L (3.5-4.5); Sodium 137 mEq/L (136-145); eGFR For African Americans > 60 (> 60); eGFR For Non-African Americans > 60 (> 60)
[2016-04-27] MEDS ORDERED: Levofloxacin 750 MG/150 ML 750 MG/150 ML BAG IVPB SCH (09:00)
[2016-04-27] MEDS: Aspirin 81 MG TAB.CHEW GTUBE SCH (09:36)
[2016-04-27] MEDS: Folic Acid 1 MG TABLET GTUBE SCH (09:36)
[2016-04-27] MEDS: Divalproex Sodium 125 MG CAPSULE GTUBE SCH ×3 (09:36→22:08)
[2016-04-27] MEDS: risperiDONE 0.25 MG TABLET GTUBE SCH (09:36)
[2016-04-27] MEDS: risperiDONE 1 MG TABLET PO SCH (16:39)
--- NOTE | 2016-04-27 17:52 | Internal Med Progress Note ---
Date of Encounter: 04/27/16 Time of Encounter: 17:50 - Assessment and plan (1) HCAP (healthcare-associated pneumonia) Current Visit: Yes Status: Acute Assessment and plan: White blood cell count is returned to normal. I am wondering switch her Levaquin over to oral. Discontinue IV Levaquin. We will still continue the vancomycin and the metronidazole for right now. (2) Leukocytosis Current Visit: Yes Status: Resolved Qualifiers: Leukocytosis type: unspecified Qualified Code(s): D72.829 - Elevated white blood cell count, unspecified (3) Anaphylactic reaction Current Visit: Yes Status: Resolved Qualifiers: Encounter type: initial encounter Qualified Code(s): T78.2XXA - Anaphylactic shock, unspecified, initial encounter (4) Dementia Current Visit: No Status: Chronic Qualifiers: Dementia type: Alzheimer's disease Alzheimer's disease onset: unspecified onset Qualified Code(s): G30.8 - Other Alzheimer's disease; F02.81 - Dementia in other diseases classified elsewhere with behavioral disturbance - Time Spent With Patient less than 15 minutes - Subjective Interval history: She denies any shortness of breath. She denies any cough. She states she is feeling fine. However she is not alert to place or time - Constitutional Vitals: Temp Pulse Resp BP Pulse Ox 97.7 F 82 15 178/76 95 04/27/16 15:53 04/27/16 15:53 04/27/16 15:53 04/27/16 15:53 04/27/16 15:53 General appearance: Present: cooperative, A&O X 3, pleasant, no acute distress - Respiratory Respiratory exam: Present: decreased breath sounds, rhonchi, wheezes - Cardiovascular Cardiovascular exam: Present: RRR Internal Medicine: Result - Labs CBC & Chem 7: 04/27/16 05:22 04/27/16 05:22 Labs: Short CBC 04/27/16 Range/Units 05:22 WBC 8.7 (4.3-11.1) K/mcL Hgb 9.0 L (11.5-15.4) g/dL Hct 29.6 L (35.3-44.9) % Plt Count 400 (140-400) K/mcL Neutrophils # 7.7 (1.6-8.9) K/mcL BMP 04/27/16 05:22 Sodium 137 Potassium 3.6 Chloride 107 Carbon Dioxide 20 BUN 23 H Creatinine 0.54 L Glucose 215 H Calcium 7.9 L - ABG Interpretation ABG results: PT/INR, D-dimer PT 15.0 Seconds (9.4-12.1) H 04/26/16 03:01 - VTE Documentation of Mechanical Device: Intermittent pneumatic compression device Consult Discharge Plan - Plan Referrals: NO,PCP [Non-Partnered Physician] -
[2016-04-27] MEDS: Vancomycin 1,500 MG in D5% in Water 250 ML IVPB SCH (18:02)
[2016-04-28] MEDS: MetroNIDAZOLE 500 MG/100 ML 500 MG/100 ML BAG IVPB SCH ×2 (00:22→09:51)
[2016-04-28 05:37] LABS: Hematocrit 29.3 % (35.3-44.9); Hemoglobin 8.8 g/dL (11.5-15.4); Mean Corpuscular Hemoglobin 24.2 pg (28.0-33.3); Mean Corpuscular Volume 80.7 fL (83.0-100.0); Mean Platelet Volume 9.8 fL (9.4-12.4); Platelet Count 491 K/mcL (140-400); Red Blood Count 3.63 M/mcL (3.82-4.97)
[2016-04-28] MEDS: *HR* Heparin 5,000 UNIT/ML VIAL SQ SCH (05:43)
[2016-04-28] MEDS: Vancomycin 1,500 MG in D5% in Water 250 ML IVPB SCH (05:47)
[2016-04-28 05:50] LABS: BUN/Creatinine Ratio 36 (6-26); Blood Urea Nitrogen 19 mg/dL (7-20); Calcium 7.6 mg/dL (8.6-10.8); Carbon Dioxide 25 mEq/L (19-29); Chloride 106 mEq/L (98-109); Glucose 178 mg/dL (70-99); Osmolality,Calculated 293 (280-300); Potassium 3.2 mEq/L (3.5-4.5); Sodium 138 mEq/L (136-145); eGFR For African Americans > 60 (> 60); eGFR For Non-African Americans > 60 (> 60)
[2016-04-28] MEDS ORDERED: predniSONE 10 MG TABLET PO SCH (08:00)
[2016-04-28] MEDS ORDERED: levoFLOXacin 750 MG TABLET PO SCH (09:00)
[2016-04-28] MEDS: Divalproex Sodium 125 MG CAPSULE GTUBE SCH ×2 (09:13→15:27)
[2016-04-28] MEDS: risperiDONE 0.25 MG TABLET GTUBE SCH (09:14)
[2016-04-28] MEDS: Folic Acid 1 MG TABLET GTUBE SCH (09:14)
[2016-04-28] MEDS: 0.9 % Sodium Chloride 1,000 ML IVC SCH ×3 (09:15→12:20)
[2016-04-28] MEDS: Aspirin 81 MG TAB.CHEW GTUBE SCH (09:15)
[2016-04-28 14:31] VITALS: BP 163/67
--- NOTE | 2016-04-28 14:38 | Discharge Summary ---
Date of Encounter: 04/28/16 Time of Encounter: 14:34 - Discharge Diagnosis (1) HCAP (healthcare-associated pneumonia) Priority: Primary Status: Acute (2) Leukocytosis Priority: Primary Status: Resolved Qualifiers: Leukocytosis type: unspecified Qualified Code(s): D72.829 - Elevated white blood cell count, unspecified (3) Anaphylactic reaction Priority: Primary Status: Resolved Qualifiers: Encounter type: initial encounter Qualified Code(s): T78.2XXA - Anaphylactic shock, unspecified, initial encounter (4) Dementia Priority: Secondary Status: Chronic Qualifiers: Dementia type: Alzheimer's disease Alzheimer's disease onset: unspecified onset Qualified Code(s): G30.8 - Other Alzheimer's disease; F02.81 - Dementia in other diseases classified elsewhere with behavioral disturbance - Discharge Medications Prescriptions: PredniSONE 10 mg PO BIDWM #15 tablet Home Medications: Divalproex (12 HR) [Depakote (12 HR)] 250 mg GTUBE TID 01/29/15 [History] Donepezil [Aricept] 10 mg GTUBE DAILY 01/29/15 [History] Folic Acid 0.4 mg GTUBE DAILY 01/29/15 [History] GuaiFENesin Liq [Robitussin Liq] 10 ml GTUBE Q4H PRN 01/29/15 [History] Hypromellose [Artificial Tears] 1 drop BOTH EYES BID 01/29/15 [History] Magnesium Hydroxide [Milk of Magnesia] 30 ml GTUBE DAILY PRN 01/29/15 [History] Acetaminophen [Tylenol] 650 mg GTUBE Q4H PRN 04/26/16 [History] Aspirin 81 mg GTUBE DAILY 04/26/16 [History] Furosemide [Lasix] 20 mg GTUBE DAILY 04/26/16 [History] HYDROcodone/Acet 5/325 mg [[place] 5-325 mg] 1 tab GTUBE Q8H PRN 04/26/16 [History ] Ipratropium/Albuterol Neb [Duoneb] 3 ml IH Q6HR PRN 04/26/16 [History] LORazepam [Ativan] 0.5 mg GTUBE BID PRN 04/26/16 [History] Metoprolol [Lopressor] 50 mg GTUBE BID 04/26/16 [History] Fredrick/Poly/Celeste OINT [Triple Antibiotic Ointment] 1 appl TP AD 04/26/16 [History] Omeprazole [PriLOSEC] 40 mg GTUBE DAILY 04/26/16 [History] Ondansetron Oral Soln [Zofran Oral Soln] 4 mg GTUBE TID 04/26/16 [History] Oxybutynin Chloride 5 mg GTUBE DAILY 04/26/16 [History] Promethazine [Phenergan] 25 mg IM Q6H PRN 04/26/16 [History] RisperiDONE [Risperdal] 0.5 mg GTUBE QAM 04/26/16 [History] RisperiDONE [Risperdal] 1 mg GTUBE QPM 04/26/16 [History] Levofloxacin [Levaquin] 500 mg PO DAILY #7 04/28/16 [Rx] PredniSONE 10 mg PO BIDWM #15 tablet 04/28/16 [Rx] Allergies/Adverse Reactions: Allergies lactose Allergy (Verified 01/29/15 15:07) Vomiting peanut Allergy (Verified 01/29/15 15:07) Abdominal Pain unknown piperacillin [From Zosyn] Allergy (Verified 04/26/16 08:01) Anaphylaxis tazobactam [From Zosyn] Allergy (Verified 04/26/16 08:01) Anaphylaxis Procedures/tests Complete & Pending: Procedures Performed prior 72 hours Category Date Time Status ECG 12 lead ECG [ECG] Routine Y 04/25/16 18:44 Completed Date of admission: 04/26/16 02:36 Primary care physician: Michael Mna MD Consults: 04/26/16 11:24 Consult to Medical Technologist [CONS] Routine Reason for SW Consult: D/C planning return to [place] 04/26/16 12:18 Consult to Nutrition [CONS] Routine Comment: On PEG. NPO for concern of asp. PNA Consulting Provider: NUTRITION Reason for Dietary Consult: Supplemental Nutrition - Patient Status Disposition: Transfer SNF Condition: Fair Functional capacity at discharge: bed bound Overall status at discharge: patient is back to baseline - Discharge Instructions Instructions: Bacterial Pneumonia (DC) Follow Up With: NO,PCP [Non-Partnered Physician] - Additional Instructions: Follow-up with her doctor at the [facility]. - Diet and Activity Activity: as per physical therapy Diet: other (npo; resume previous tube feedings) Hospital course: Ms. Moreland is a 80 year old female admitted to the hospital with evidence of pneumonia. Get infectious lives at an F this makes her likely to having a healthcare associated pneumonia was treated as such. Unfortunately, after her initial dose of Zosyn, she had masslike reaction. She was started on steroids. She was started on Benadryl. This was resolved fairly quickly within 1-2 days. She is continuing IV antibiotics until today. She is switched to oral Levaquin. He done well with this. White cells are still staying down. Both urine and sputum cultures showed no growth. Both blood cultures showed no growth. On exam today she looks wonderful. She stated she wanted to "go home" and she stated she "I feel a lot better ". This was mostly gotten out of her in 3 days and she apparently looks and feels tremendously better - Time Spent with Patient Total time spent providing and/or coordinating discharge services: - Constitutional Vitals: Temp Pulse Resp BP Pulse Ox 97.5 F L 84 18 163/67 97 04/28/16 14:30 04/28/16 14:30 04/28/16 14:30 04/28/16 14:30 04/28/16 14:30 General appearance: Present: cooperative, A&O X 3, pleasant, no acute distress - Respiratory Respiratory exam: Present: CTAB. Absent: decreased breath sounds, rhonchi, wheezes, tachypnea - Cardiovascular Cardiovascular exam: Present: RRR - VTE Documentation of Mechanical Device: Intermittent pneumatic compression device
--- NOTE | 2016-04-28 14:44 | Physician Discharge Referral ---
ExtendedCare Referral Info Transfer To: [facility] Provider in Charge: Young Provider in Charge after Transfer: PCP Institutional Level of Care: Intermediate - MR - Diagnosis (1) HCAP (healthcare-associated pneumonia) Status: Acute (2) Leukocytosis Status: Resolved (3) Anaphylactic reaction Status: Resolved (4) Dementia Status: Chronic - Transfer Medications Prescriptions: PredniSONE 10 mg PO BIDWM #15 tablet Home Medications: Divalproex (12 HR) [Depakote (12 HR)] 250 mg GTUBE TID 01/29/15 [History] Donepezil [Aricept] 10 mg GTUBE DAILY 01/29/15 [History] Folic Acid 0.4 mg GTUBE DAILY 01/29/15 [History] GuaiFENesin Liq [Robitussin Liq] 10 ml GTUBE Q4H PRN 01/29/15 [History] Hypromellose [Artificial Tears] 1 drop BOTH EYES BID 01/29/15 [History] Magnesium Hydroxide [Milk of Magnesia] 30 ml GTUBE DAILY PRN 01/29/15 [History] Acetaminophen [Tylenol] 650 mg GTUBE Q4H PRN 04/26/16 [History] Aspirin 81 mg GTUBE DAILY 04/26/16 [History] Furosemide [Lasix] 20 mg GTUBE DAILY 04/26/16 [History] HYDROcodone/Acet 5/325 mg [[place] 5-325 mg] 1 tab GTUBE Q8H PRN 04/26/16 [History ] Ipratropium/Albuterol Neb [Duoneb] 3 ml IH Q6HR PRN 04/26/16 [History] LORazepam [Ativan] 0.5 mg GTUBE BID PRN 04/26/16 [History] Metoprolol [Lopressor] 50 mg GTUBE BID 04/26/16 [History] Fredrick/Poly/Celeste OINT [Triple Antibiotic Ointment] 1 appl TP AD 04/26/16 [History] Omeprazole [PriLOSEC] 40 mg GTUBE DAILY 04/26/16 [History] Ondansetron Oral Soln [Zofran Oral Soln] 4 mg GTUBE TID 04/26/16 [History] Oxybutynin Chloride 5 mg GTUBE DAILY 04/26/16 [History] Promethazine [Phenergan] 25 mg IM Q6H PRN 04/26/16 [History] RisperiDONE [Risperdal] 0.5 mg GTUBE QAM 04/26/16 [History] RisperiDONE [Risperdal] 1 mg GTUBE QPM 04/26/16 [History] Levofloxacin [Levaquin] 500 mg PO DAILY #7 04/28/16 [Rx] PredniSONE 10 mg PO BIDWM #15 tablet 04/28/16 [Rx] Allergies/Adverse Reactions: Allergies lactose Allergy (Verified 01/29/15 15:07) Vomiting peanut Allergy (Verified 01/29/15 15:07) Abdominal Pain unknown piperacillin [From Zosyn] Allergy (Verified 04/26/16 08:01) Anaphylaxis tazobactam [From Zosyn] Allergy (Verified 04/26/16 08:01) Anaphylaxis - Respiratory Orders Smoking Cessation: Smoking cessation has been advised. For more information, call the [place] Tobacco Quit Line at 4-978-SEEE-NOW. CERTIFICATION: I certify that the transfer of the above named patient to an Extended Care Facility is necessary for the continuing treatment of the diagnosis listed. The above information is true and accurate reflection of patient's current condition. Confidential - Redisclosure prohibited without a patient's written consent.
[2016-04-28] MEDS ORDERED: Aminoglycoside Consult 1 EACH MC ONE (16:04)
== END 2016-04-28 16:05 | DRG 871 ==
LOC: EMEROO 18:43 → 3BNU 18:43 → ICNU 04-26 00:51 → SUATTDRO 04-26 02:36 → 3BNU 04-26 08:49
PROVIDERS: ADMIT Internal Medicine; ATTEND Internal Medicine